=== PATIENT | female | born 1960 | race Caucasian/White ===

== ENCOUNTER 2023-11-30 07:11 | Inpatient (IN) | payer OTHER, SELFPAY ==
[2023-11-30] VITALS (10 sets, daily range): BP systolic 103–146; BP diastolic 57–85; BMI 42.0
--- NOTE | 2023-11-30 01:38 | ED.GENMED ---
History of Present Illness
<MARIBEL Lipscomb - Last Filed: 11/30/23 05:05>
General
Chief Complaint: Abdominal Pain
Source: patient and spouse
Exam Limitations: none
Time Seen by Provider: 11/30/23 01:28
Travel History
Have you had any contact with someone who has COVID-19?: No
Do you have any symptoms of coronavirus? Fever > 100 degrees, chills, cough, shortness of breath, sore throat, loss of taste or smell, muscle aches, or headache?: No
History of Present Illness
History of Present Illness:
62 year old female with hx of IDDM, HTN, hypothyroidism, ileus x2 over 10 years ago, s/p bowel resection and appendectomy over 10 years ago who presents with sudden onset of nausea and vomiting that began at 1700 Saturday. Pt is here with . Pt
vomited 15 times today. She took a dose of Emetrol with no relief. Pt ate salsa about 2 hours prior to onset of vomiting. Pt unable to tell if she had blood in the vomit. reports pt has a hx of intractable vomiting, last episode was 11 years
ago. She also reports sharp abdominal pain that spans across the mid-abdomen. Pain waxes and wanes, currently pain is 4/10. She also complains of lower back pain. She has not taken anything for pain. She has had two BM since onset of pain that were
normal. She is unable to tolerate PO and feels overall weak. States she feels hypoglycemic and reports dizziness and head ache. Denies fevers/chills, heart burn, chest pain, SOB, diarrhea, constipation, dysuria, hematuria, bloody or dark/tarry
stool. Denies recent illness or recent travel. Denies sick contacts.
Past History
<MARIBEL Lipscomb - Last Filed: 11/30/23 05:05>
Past History
ED Past Medical History: IDDM and Hypothyroidism
ED Past Surgical History: Appendectomy, Bowel resection and Tonsilectomy
Social History
Tobacco: Non-smoker
Review of Systems
<MARIBEL Lipscomb - Last Filed: 11/30/23 05:05>
Review of Systems
Allergies reviewed?: Yes
All Other Systems: ROS reviewed and negative except as documented in HPI and ROS
Constitutional: Reports fatigue
EENT: Reports no symptoms
Respiratory: Reports no symptoms
Cardiac: Reports no symptoms
ABD/GI: Reports abdominal pain, nausea and vomiting
: Reports no symptoms
Musculoskeletal: Reports no symptoms
Skin: Reports no symptoms
Neurological: Reports dizzy and headache
Endocrine: Reports no symptoms
Hematologic/Lymphatic: Reports no symptoms
Psychiatric: Reports no symptoms
Phy Exam
<MARIBEL Lipscomb - Last Filed: 11/30/23 05:05>
General Physical Exam
General Presentation: moderate distress and other (weak appearing, eyes closed)
General age: appears stated age
General Skin: warm, dry and pale
General Habitus: obese
General Mental: alert
General Hydration: dry mucous membranes
Cardiovascular Exam
Cardiovascular Exam: regular rate/rhythm, no edema, no gallop and no murmur
Pulmonary Exam
Pulmonary Exam: lungs clear, no respiratory distress, no rales, no crackles, no rhonchi, no wheezing and no cough
Gastrointestinal Exam
Gastrointestinal Exam: normal bowel sounds, soft and other (obese abdomen, midabdominal tenderness across the abdomen)
Neurological Exam
Neurological Exam: alert and oriented x3
Skin Exam
Skin Exam: warm/dry and pallor
Psychiatric Exam
Psychiatric Exam: normal mood/affect
Course
<MARIBEL Lipscomb - Last Filed: 11/30/23 05:05>
Orders/Labs/Results
Orders:
Orders
11/30/23 01:57
Cardiac Monitoring- Treatment ONCE
Urinalysis Reflex To Culture Urgent
0.9% Sodium Chloride 1000 ml [Nss] 1,000 ml IV BOLUS
Morphine Sulfate 4 mg IV NOW STA
Ondansetron Injectable [Zofran] 4 mg IV NOW STA
11/30/23 01:58
CT Abd/Pel (IV only)-DH only Urgent
Comment:
Reason For Exam: hx bowel resection, now n/v/pain
11/30/23 02:05
Complete Blood Count/No Diff Urgent
11/30/23 03:11
Basic Metabolic Panel Urgent
Comment: NO K
Abnormal Lab Results
11/30/23 11/30/23
02:05 03:11
WBC 19.1 H 10^3/uL
(4.8-10.8)
BUN 27 H mg/dl
(7-17)
Glucose 301 H mg/dl
(70-99)
11/30/23 02:05
11/30/23 03:11
Vital Signs
Initial and Last Documented VS:
Initial Vital Signs
Temp Pulse Resp BP Pulse Ox
97.9 F 107 20 146/85 100
11/30/23 01:13 11/30/23 01:13 11/30/23 01:13 11/30/23 01:13 11/30/23 01:13
Last Documented Vital Signs
Temp Pulse Resp BP Pulse Ox
97.9 F 110 15 117/73 97
11/30/23 01:13 11/30/23 04:37 11/30/23 04:37 11/30/23 03:00 11/30/23 04:37
<Jaleesa Cates MD - Last Filed: 11/30/23 05:05>
Orders/Labs/Results
Orders:
Orders
11/30/23 01:57
Cardiac Monitoring- Treatment ONCE
Urinalysis Reflex To Culture Urgent
0.9% Sodium Chloride 1000 ml [Nss] 1,000 ml IV BOLUS
Morphine Sulfate 4 mg IV NOW STA
Ondansetron Injectable [Zofran] 4 mg IV NOW STA
11/30/23 01:58
CT Abd/Pel (IV only)-DH only Urgent
Comment:
Reason For Exam: hx bowel resection, now n/v/pain
11/30/23 02:05
Complete Blood Count/No Diff Urgent
11/30/23 03:11
Basic Metabolic Panel Urgent
Comment: NO K
Abnormal Lab Results
11/30/23 11/30/23
02:05 03:11
WBC 19.1 H 10^3/uL
(4.8-10.8)
BUN 27 H mg/dl
(7-17)
Glucose 301 H mg/dl
(70-99)
11/30/23 02:05
11/30/23 03:11
Vital Signs
Initial and Last Documented VS:
Initial Vital Signs
Temp Pulse Resp BP Pulse Ox
97.9 F 107 20 146/85 100
11/30/23 01:13 11/30/23 01:13 11/30/23 01:13 11/30/23 01:13 11/30/23 01:13
Last Documented Vital Signs
Temp Pulse Resp BP Pulse Ox
97.9 F 110 15 117/73 97
11/30/23 01:13 11/30/23 04:37 11/30/23 04:37 11/30/23 03:00 11/30/23 04:37
<MARIBEL Lipscomb - Last Filed: 11/30/23 05:05>
MDM/Problems Addressed
Differential Diagnosis Includes:
ileus, SBO, bowel perforation, colitis
MDM/Problems Addressed:
62 year old female who presents with midabdominal pain with associated nausea and vomiting.
Chronic conditions affecting care: DM, HTN and Previous abdomnial surgery (bowel resection, appendectomy)
<MARIBEL Lipscomb - Last Filed: 11/30/23 05:05>
*Critical Care Note
Total Time (30-74mins, 75-104mins- exclusive of procedures): Not Applicable
<MARIBEL Lipscomb - Last Filed: 11/30/23 05:05>
Update Note
Update Note:
11/30/23 0226: Pt reevaluated. Nausea and abdominal pain improved after medications. States she feels tired.
ED Attending Note
<MARIBEL Lipscomb - Last Filed: 11/30/23 05:05>
-
Portions of this chart may have been created with voice recognition software.� Occasional wrong word or��sound alike� substitutions may have occurred due to the inherent limitations of voice recognition software.
<Jaleesa Cates MD - Last Filed: 11/30/23 05:05>
ED Attending Note
Patient seen and examined by attending physician: Yes
I performed the substantive portion of visit, reviewed & personally made and approve the management plan that is documented in note by myself or GIANCARLO.: Yes
ED Attending Note:
62-year-old female says she was napping around 4 PM and awoke with mid abdominal discomfort that comes and goes in waves and continues associated with nausea and intractable nonbloody vomiting. This feels like when she had an abdominal ileus in the
past. She has a prior history of prior bowel resection. She thinks she might of passed a small amount of stool. She denies fever, chills, chest pain, shortness of breath, hematemesis, coffee-ground emesis, lower abdominal pain, or other
complaints. On exam, patient appears uncomfortable. Abdomen soft and nontender, no rebound or guarding, hypoactive bowel sounds noted. Heart regular rate and rhythm, lungs CTA, mucous membranes slightly dry, oropharynx clear, no clubbing cyanosis
or edema, neuro intact, psych normal. Patient presents to the Emergency Department with __abdominal pain and vomiting
Number and Complexity of Problems Addressed at the Encounter
� Chronic conditions affecting care:
� Acute Exacerbation and/or Progression of Chronic Illness:
� Differential Diagnosis includes: But not limited to ileus, gastroenteritis, bowel obstruction, etc. etc.
Amount and/or Complexity of Data to be Reviewed and Analyzed
� I performed an independent evaluation of and my interpretation is:
EKG:
CT: Vision report multiple dilated loops of small bowel to the level of the anastomosis within the upper pelvis compatible with obstruction no perforation or fluid collection no diverticulitis distal small bowel is decompressed
no cholecystitis
Xrays:
Laboratory Studies: White blood cell count elevation noted likely related to SBO, mild dehydration
Other:
� Review of other/old records reveals:
� Clinical information was obtained by an independent historian: who is bedside
� Prescriptions/Medications Considered but not given:
� Further testing considered but not performed:
Risk of Complications and/or Morbidity or Mortality of Patient Management
� Social determinants of health affecting care:
� Discussion with other providers (PCP, Hospitalists, Consultants, etc):
� Escalation of care including admission/observation vs risk of discharge considered: CT noted. Patient is no longer vomiting. She will need IV fluids, got rest, admission. [place] text sent to Dr. Monreal.
Discharge Plan
Departure
Patient Disposition: Admit
Date of Disposition: 11/30/23
Time of Disposition: 05:05
Admit to doctor: david
Presentation/result/management discussed w/ accepting MD/DO: Hospitalist
Condition: Good
Discharge Problem:
SBO (small bowel obstruction)
Prescriptions:
No Action
multivitamin Tablet
1 tab PO DAILY
pravastatin 40 mg Tablet
40 mg PO QPM
aspirin 81 mg Tablet,Delayed Release (Dr/Ec)
81 mg PO DAILY
levothyroxine 100 mcg Tablet
100 mcg PO DAILY
Humulin R Regular U-100 Insuln 100 unit/mL Solution
20 unit SC AC
lisinopril 5 mg Tablet
5 mg PO DAILY
insulin NPH isoph U-100 human 100 unit/mL (3 mL) Insulin Pen
40 unit SC DAILY
insulin NPH isoph U-100 human 100 unit/mL (3 mL) Insulin Pen
65 unit SC QPM
cefazolin 10 gram Recon Soln
2 g IV Q8H 42 Days Qty: 126 0RF
oxycodone-acetaminophen 5-325 mg Tablet
1 tab PO Q4HPRN PRN (Reason: POST OP PAIN) Qty: 14 0RF
polyethylene glycol 3350 [Miralax] 17 gram/dose powder
4 g PO DAILY 10 Days Qty: 40 0RF
Referrals:
Aggie Durbin MD [Family Provider] -
Interventions
Interventions:
*Risk Screen - Suicide Last Done: 11/30/23 01:13
*General Assessment Last Done: 11/30/23 01:13
*Neglect/Abuse Screening Last Done: 11/30/23 01:13
ED- Fall Risk Assessment Last Done: 11/30/23 01:13
*ED COVID-19 Vaccine History Last Done: 11/30/23 01:13
OH-Gslgas-Fvmlywboam Assessment Last Done: 11/30/23 01:50
Discharge Date and Time
Print Language: VENEZUELAN
[2023-11-30] MEDS: NSS 1000 IV ×3 (02:13→11:22)
[2023-11-30] MEDS: ZOFRAN 4 MG IV ×2 (02:14→07:38)
[2023-11-30] MEDS: MORPHINE SULFATE 4 MG IV (02:14)
[2023-11-30 02:25] LABS: Hematocrit 40.9 % (37.0-47.0); Hemoglobin 14.5 g/dL (12.0-16.0); Mean Corp Hgb Conc. 35.5 g/dL (33.0-37.0); Mean Corpuscular Hgb 29.8 pg (27.0-31.0); Mean Platelet Volume 9.5 fL (7.4-10.4); Platelet Count 305 10^3/uL (130-400); Red Blood Cell Count 4.87 10^6/uL (4.20-5.40); Red Cell Dist. Width 13.1 % (11.5-14.5); White Blood Cell Count 19.1 10^3/uL (4.8-10.8)
[2023-11-30 03:36] LABS: Blood Urea Nitrogen 27 mg/dl (7-17); Calcium 9.9 mg/dl (8.4-10.2); Carbon Dioxide 22 mmol/L (22-30); Chloride 102 mmol/L (98-107); Glucose 301 mg/dl (70-99); Sodium 135 mmol/L (135-145); eGFR > 60.00
--- NOTE | 2023-11-30 06:47 | HPS.HSE ---
Family Physician
-
Family Physician: Aggie Durbin
Chief Complaint
-
Abd pain, N/V
History of Present Illness
Patient is a 62y F with PMH significant for DM-II and obesity who presents to ED complaining of abdominal pain and N/V. Patient states that she was feeling well until around 5 PM last evening when she developed pain across the lower abdomen
followed by N/V. Patient notes that she had > 12 episodes of non-bloody, bilious emesis. Her symptoms persisted through the night and patient presented to the ED for further evaluation.
Patient denies any fevers / chills, urinary complaints, etc.
Patient reports prior history of similar symptoms and notes she has been treated for ileus on 2 previous occasions.
She has prior history of complicated appendicitis with abscess, prolonged drain placement and eventual small bowel resection / appendectomy.
Medical History
Past Medical History
Past Medical History: Reports Other
Additional Past Medical History:
DM-II
Charcot Foot (Right)
Hypothyroidism
Obesity
Past Surgical History: Reports Other
Additional Past Surgical History:
Right Foot Reconstructive Surgery / Digital Amputation
IR Abdominal Drain Placement
Partial Small Bowel Resection
Appendectomy
Social History
Tobacco: Former Smoker (Quit smoking about 25 years ago. Approx 20 pack years total.)
Alcohol: Occasional
Personal:
Living: With Family
Family History
Family History: Other (Mother: CVA Father: DM)
Allergies / Home Medications
Allergies reflects when Allergies were last updated in [employer].
Home Medications with original date entered in [employer]
Allergy/Medication List:
Allergies
Allergy/AdvReac Type Severity Reaction Status Date / Time
barium iodide Allergy Nausea / Verified 11/30/23 01:13
Vomiting
Home Medications
aspirin 81 mg tablet,delayed release 81 mg PO DAILY Blood Clot Prevention/Tx 12/12/22
insulin NPH isoph U-100 human 100 unit/mL (3 mL) subcutaneous pen 40 unit SC DAILY Diabetes 12/12/22
insulin NPH isoph U-100 human 100 unit/mL (3 mL) subcutaneous pen 65 unit SC QPM Diabetes 12/12/22
insulin regular human 100 unit/mL injection solution (Humulin R Regular U-100 Insulin) 20 unit SC AC Diabetes 12/12/22
levothyroxine 100 mcg tablet 100 mcg PO DAILY Thyroid 12/12/22
lisinopril 5 mg tablet 5 mg PO DAILY Blood Pressure 12/12/22
multivitamin 1 tab PO DAILY Supplement 12/12/22
pravastatin 40 mg tablet 40 mg PO QPM High Cholesterol 12/12/22
Review of Systems
-
History Source: Patient
A 12 point ROS was completed and negative except as noted: Yes
Constitutional: Reports Fatigue; Denies Fever or Chills
EENT: Denies Sore Throat
Respiratory: Denies Cough or Trouble Breathing
Cardiac: Denies Chest Pain or Palpitations
Abdomen/GI: Reports Abdominal Pain, Nausea and Vomiting; Denies Diarrhea, Constipated or Bloody Stools
Musculoskeletal: Denies Joint Pain or Edema
Neurological: Denies Dizzy or Headache
Physical Exam
Vital Signs
Vital Signs
Temp Pulse Resp BP Pulse Ox
97.9 F 110 15 117/73 97
11/30/23 01:13 11/30/23 04:37 11/30/23 04:37 11/30/23 03:00 11/30/23 04:37
Physical Exam
General: Other (62y F in mild distress due to pain / nausea.)
HEENT: Moist mucous membranes, PERRLA and Other (Thick neck.)
Respiratory: Clear; No Wheezes, Rales or Rhonchi
Cardiac: S1/S2 and Regular Rhythm; No Murmur
GI: Soft, Non Distended and Other (Bowel sounds seem diminished. Pos tenderness along lower abdomen without rebound.)
Musculoskeletal: No Clubbing, No Cyanosis and No Edema
Neuro: AO x 3
Laboratory Results
-
11/30/23 02:05
11/30/23 03:11
Laboratory Results
Total Bilirubin Cancelled 11/30/23 03:11
AST Cancelled 11/30/23 03:11
ALT Cancelled 11/30/23 03:11
Alkaline Phosphatase Cancelled 11/30/23 03:11
Lipase Cancelled 11/30/23 03:11
Impression/Plan
-
A/P: Patient is a 62y F with PMH significant for DM-II and obesity who presents to ED complaining of abdominal pain and N/V that started this evening.
SBO
- Admit for further evaluation and treatment.
- CT done in the ED shows small bowel dilation to the level of the prior anastomosis.
- NPO, IVFs, pain control, antiemetics.
- Pace NG for decompression if any further emesis or worsening pain.
- Surgery evaluation for additional recommendations.
- Follow for clinical improvement.
DM-II with Peripheral Neuropathy
- Stable. Continue basal : bolus insulin regimen.
- Decrease NPH doses by about 1/2 to begin with while NPO.
- SSI coverage as needed.
- Update A1C.
- Adjust insulin regimen as needed to avoid hypoglycemia.
Hypothyroidism
- Stable. Continue T 4 supplementation.
Obesity due to excess calories
- Affects all aspects of care.
- Encourage healthy diet and increased exercise with goal of weight loss.
DVT Prophylaxis: Lovenox
Code Status: Full
[2023-11-30] MEDS: DILAUDID 0.5 MG IV (07:42)
--- NOTE | 2023-11-30 10:17 | PTCARENOTE ---
0945: Patient arrived to 2S. Full head to toe assessment completed. IVF running per order. Patient wearing 2L NC with SpO2 greater than 92%. at bedside. Call valencia within reach and bed in lowest position.
[2023-11-30] MEDS: NOVOLOG FLEXPEN-MODERATE RESISTANCE SC (11:19)
--- NOTE | 2023-11-30 11:19 | CON.GS ---
Medical History
-
Chief Complaint: abdominal pain
History of Present Illness:
This is a 62 yo female with a h/o DM, HTN, appendectomy about 20 years ago for perforated appendicitis with subsequent development of fistula and small bowel resection for management with 2 hospitalizations since that time for 'ileus' with the most
recent being about 10 years ago presenting with abdominal pain since around 5pm last night. She notes a late lunch of caprese salad made with roasted peppers and as well as chips and salsa after which time she took a nap and was awakened with
abdominal pain to her lower abdomen with nausea and vomiting. Last BM was yesterday x2 prior to onset of pain. She denies active nausea after receiving zofran. She has pain to the mid lower abdomen with light palpation, but is otherwise comfortable.
She denies hematochezia, constipation, diarrhea, fevers or chills.
Past Medical History
Past Medical History: HTN, Hypercholesterolemia, Hypothyroidism and IDDM
Past Surgical History: Appendectomy, Bowel Resection (sbr for fistula early ), Tonsilectomy and Other (I&D of right foot abscess)
Social History
Tobacco: Former Smoker
Alcohol: Occasional
Personal:
Living: With Family
Family History
Family History: Reviewed & Not Pertinent
Allergies / Home Medications
Allergy/AdvReac Type Severity Reaction Status Date / Time
barium iodide Allergy Nausea / Verified 11/30/23 07:31
Vomiting
�Medication �Instructions �Recorded �Confirmed �Type
aspirin 81 mg tablet,delayed 81 mg PO DAILY Blood Clot 12/12/22 11/30/23 History
release Prevention/Tx
insulin NPH isoph U-100 human 100 40 unit SC DAILY Diabetes 12/12/22 11/30/23 History
unit/mL (3 mL) subcutaneous pen
insulin NPH isoph U-100 human 100 65 unit SC QPM Diabetes 12/12/22 11/30/23 History
unit/mL (3 mL) subcutaneous pen
insulin regular human 100 unit/mL 20 unit SC AC Diabetes 12/12/22 11/30/23 History
injection solution (Humulin R
Regular U-100 Insulin)
levothyroxine 100 mcg tablet 100 mcg PO DAILY Thyroid 12/12/22 11/30/23 History
lisinopril 5 mg tablet 5 mg PO DAILY Blood Pressure 12/12/22 11/30/23 History
multivitamin 1 tab PO DAILY Supplement 12/12/22 11/30/23 History
pravastatin 40 mg tablet 40 mg PO QPM High Cholesterol 12/12/22 11/30/23 History
Review of Systems
-
History Source: Patient and Family
All other systems: Negative unless noted
A 10 point review of systems was completed, and was negative except as per HPI.
Physical Exam
Vital Signs
Temp Pulse Resp BP Pulse Ox
98.0 F 101 18 111/57 98
11/30/23 07:39 11/30/23 09:30 11/30/23 07:14 11/30/23 09:00 11/30/23 09:30
11/29/23 11/30/23 12/01/23
06:59 06:59 06:59
Actual Weight 125.191 kg
Body Mass Index (BMI) 42.0
Lab Results
11/30/23 02:05
11/30/23 03:11
WBC 19.1 10^3/uL (4.8-10.8) H 11/30/23 02:05
Hgb 14.5 g/dL (12.0-16.0) 11/30/23 02:05
Hct 40.9 % (37.0-47.0) 11/30/23 02:05
Plt Count 305 10^3/uL (130-400) 11/30/23 02:05
Physical Exam
General: Well Developed and Well Nourished
HEENT: Moist Mucous Membranes
Respiratory: Non Labored Respirations
GI: Soft and Tender (lower mid abdomen/suprapubicly)
Skin: Warm and Dry
Neuro: Awake, Alert and AO x 3
Psych: Calm
Assessment / Plan
-
62 yo female with h/o DM, HTN, appendectomy about 20 years ago for perforated appendicitis with subsequent development of fistula and small bowel resection for management with 2 hospitalizations since that time for 'ileus' with the most recent being
about 10 years ago presenting with abdominal pain since around 5pm last night. Leukocytosis present. CT imaging reviewed with evidence of pSBO near the prior SB anastomosis site, abscence of PO contrast does limit study. Pain/nausea improving
overall. Mild tachycardia, otherwise AFVSS.
No plans for emergent surgery at this time. Will follow with bowel rest/hydration/analgesics/supportive care at this time
--Keep NPO, may need NGT if develops further vomiting
--Analgesics/antiemetics prn
--Tentative SBFT study with contrast Saturday to further evaluate pending patient course
--IVF and medical management as per primary team
[2023-11-30] MEDS: SYNTHROID 100 MCG PO (11:22)
[2023-11-30] MEDS: NSS (PRESERVATIVE FREE) 10 ML IV (11:23)
[2023-11-30] MEDS: PROTONIX IV 40 MG IV (11:24)
[2023-11-30 12:00] LABS: Urine Albumin Negative (Neg - Trace); Urine Bilirubin Negative (Negative); Urine Character Clear (Clear); Urine Color Yellow; Urine Glucose 3+ (Negative); Urine Ketone 1+ (Negative); Urine Leukocyte 1+ (Negative); Urine Nitrite Negative (Negative); Urine Occult Blood Negative (Negative); Urine Specific Gravity 1.015 (<1.030); Urine Urobilinogen Negative (Neg - 1+)
[2023-11-30 12:15] LABS: Glucose - Point of Care 248 mg/dl (70-99)
[2023-11-30] MEDS: HUMULIN N KWIKPEN 20 UNITS SC (12:16)
[2023-11-30] MEDS: NOVOLOG FLEXPEN-MODERATE RESISTANCE 3 UNITS SC ×2 (12:16→17:17)
[2023-11-30 12:53] LABS: Urine Red Blood Cell None Seen /HPF (0-2); Urine Squamous Cell 21-25 /LPF (Few)
[2023-11-30 12:54] LABS: Urine Bacteria Few (Negative)
[2023-11-30 17:04] LABS: Glucose - Point of Care 204 mg/dl (70-99)
[2023-11-30] MEDS: HUMULIN N KWIKPEN 30 UNITS SC (17:18)
[2023-11-30] MEDS: LOVENOX 40 MG SC (17:19)
[2023-12-01 00:07] LABS: Glucose - Point of Care 79 mg/dl (70-99)
[2023-12-01] MEDS: NSS 1000 IV ×2 (01:13→07:39)
[2023-12-01 05:45] LABS: Glucose - Point of Care 70 mg/dl (70-99)
--- NOTE | 2023-12-01 06:31 | PTCARENOTE ---
Pt blood glucose 70 at this time, provided 4oz of apple juice since pt is NPO until seen by MD. Pt is AAOx3 resting in bed and aware of blood glucose level. Pt knows s/s of hypoglycemia and will notify Nsg staff if any changes.
[2023-12-01 06:38] LABS: Hematocrit 32.6 % (37.0-47.0); Mean Corp Hgb Conc. 33.4 g/dL (33.0-37.0); Mean Corpuscular Volume 89.8 fL (81.0-99.0); Platelet Count 244 10^3/uL (130-400); Red Blood Cell Count 3.63 10^6/uL (4.20-5.40); Red Cell Dist. Width 13.6 % (11.5-14.5); White Blood Cell Count 8.5 10^3/uL (4.8-10.8)
[2023-12-01 06:45] LABS: Hemoglobin 10.9 g/dL (12.0-16.0)
[2023-12-01 06:50] LABS: Blood Urea Nitrogen 23 mg/dl (7-17); Calcium 8.5 mg/dl (8.4-10.2); Carbon Dioxide 24 mmol/L (22-30); Chloride 107 mmol/L (98-107); Estimated Creatinine Clearance 88 ml/min; Glucose 58 mg/dl (70-99); Potassium 4.4 mmol/L (3.5-5.1); Sodium 139 mmol/L (135-145); eGFR > 60.00
[2023-12-01] MEDS: NOVOLOG FLEXPEN-MODERATE RESISTANCE SC ×2 (07:20→12:01)
[2023-12-01] MEDS: HUMULIN N KWIKPEN SC (07:21)
[2023-12-01] MEDS: NSS (PRESERVATIVE FREE) 10 ML IV (07:40)
[2023-12-01] MEDS: SYNTHROID 100 MCG PO (07:40)
[2023-12-01] MEDS: DEXTROSE 50% SYRINGE 12.5 GRAMS IV (07:40)
[2023-12-01] MEDS: PROTONIX IV 40 MG IV (07:40)
[2023-12-01 07:49] VITALS: BP 136/58
[2023-12-01 08:11] LABS: Glucose - Point of Care 137 mg/dl (70-99)
[2023-12-01 08:25] VITALS: BP 148/71; PULSE 101
--- NOTE | 2023-12-01 09:41 | W.PN.GS2 ---
Today's Communication / Plan
-
-- NPO, IVF, await ROBF
-- Transition to mIVF with some dextrose
-- Would recommend transition to SSI not home given NPO status
-- OOB/ambulate
Assessment / Plan
-
Patient is a 62 yo F p/w SBO secondary to adhesions and anastomosis, possible component of dietary indiscretion
Clinically improved, awaiting ROBF. Discussed potential diagnostic and therapeutic benefit of UGI, patient reports prior issues with tolerating the study and would like to hold at this time.
-- NPO, IVF, await ROBF
-- Transition to mIVF with some dextrose
-- Would recommend transition to SSI not home given NPO status
-- OOB/ambulate
Subjective Data
-
Date of Service: December 01, 2023
Feels improved. Abdominal pain resolved. No nausea or vomiting. No flatus or BM.
Objective Data
-
Intake and Output
11/30/23 12/01/23 12/02/23
06:59 06:59 06:59
Intake Total 1200 / 1200 1680 / 1680
Output Total 700 / 700
Balance 500 / 500 1680 / 1680
Intake:
Oral fluids 480 / 480
IV fluids (Total) 1200 / 1200 1200 / 1200
Output:
Urine, Voided 700 / 700
Other:
Number of approximated MODERATE 1
amounts of urine
Vital Signs
Temp Pulse Resp BP Pulse Ox
97.9 F 99 16 136/58 96
12/01/23 07:49 12/01/23 07:49 12/01/23 07:49 12/01/23 07:49 12/01/23 07:49
Lab Results
12/01/23 05:24
12/01/23 05:24
Calcium 8.5 mg/dl (8.4-10.2) 12/01/23 05:24
Total Bilirubin Cancelled 11/30/23 03:11
AST Cancelled 11/30/23 03:11
ALT Cancelled 11/30/23 03:11
Alkaline Phosphatase Cancelled 11/30/23 03:11
Total Protein Cancelled 11/30/23 03:11
Albumin Cancelled 11/30/23 03:11
Physical Exam
-
Gen: NAD
Abd: soft, ND, obese, no worse distension, non-peritoneal
[2023-12-01 10:08] LABS: Glucose - Point of Care 125 mg/dl (70-99)
[2023-12-01 10:17] LABS: Glycohemoglobin (HgbA1c) 7.2 % (4.0-5.6)
[2023-12-01] MEDS: D5/0.45%NSS with KCL 20 MEQ 1000 IV ×2 (10:34→20:39)
[2023-12-01 11:48] LABS: Glucose - Point of Care 137 mg/dl (70-99)
--- NOTE | 2023-12-01 15:23 | CM ---
Initial assessment completed with pt at bedside.
Pt is a 62yr old female admitted with Small Bowel Obstruction.
At baseline, pt lives with her spouse in a 1 story home with 3 steps to enter.
Pt is indep at baseline; driving.
Pt does have a cane for bad weather and received a Rw and commode during a prior stay
Pt has used [facility] in the past but does not anticipate needing at dc.
PCP; Aggie Durbin
Pharm; [address]
PLAN; DC home with no anticipated needs.
--- NOTE | 2023-12-01 15:32 | W.PN.HOSP.TC ---
Today's Communication/Plan
-
see plan above
Assessment / Plan
Assessment / Plan
A/P: Patient is a 62y F with PMH significant for DM-II and obesity who presents to ED complaining of abdominal pain and N/V that started this evening.
SBO
- CW NPO, IV fluids
- Surgery following
- CT done in the ED shows small bowel dilation to the level of the prior anastomosis.
- Follow for clinical improvement.
DM-II with Peripheral Neuropathy
- Stable. Continue basal : bolus insulin regimen. Patient normally takes 105 units of Humulin N and and 20 units of Humalog with a meal. Cant just do sliding scale as he will be difficult to manage hyperglycemia. Will cover with a decreased
dose of Humulin and and continue with sliding scale.
- SSI coverage as needed.
- Update A1C.
- Adjust insulin regimen as needed to avoid hypoglycemia.
Hypothyroidism
- Stable. Continue T 4 supplementation.
Obesity due to excess calories
- Affects all aspects of care.
- Encourage healthy diet and increased exercise with goal of weight loss.
DVT Prophylaxis: Lovenox
Code Status: Full
Anticipated Discharge: > 48 hours
Subjective/Interval History
-
Date of Service: December 01, 2023
Still no BM or passing gas. No nausea vomiting. Denies much of abdominal pain.
Objective Data
-
Labs:
Laboratory Results
12/01/23
05:24
WBC 8.5
Hgb 10.9 L D
Hct 32.6 L
Plt Count 244
Sodium 139
Potassium 4.4
Chloride 107
Carbon Dioxide 24
BUN 23 H
Creatinine 0.9
Glucose 58 L
Calcium 8.5
Vital Signs:
Vital Signs
Temp Pulse Resp BP Pulse Ox
97.9 F 99 16 136/58 96
12/01/23 07:49 12/01/23 07:49 12/01/23 07:49 12/01/23 07:49 12/01/23 08:00
I&O
11/30/23 12/01/23 12/02/23
06:59 06:59 06:59
Intake Total 1200 / 1200 1680 / 1680
Output Total 700 / 700
Balance 500 / 500 1680 / 1680
Review of Systems
-
Respiratory: Denies Trouble Breathing
Cardiac: Denies Chest Pain
Neuro: Denies Dizzy
Physical Exam
-
General: No Apparent Distress
HEENT: Moist Mucous Membranes
Respiratory: Clear to Auscultation (anteriroly)
GI: Soft and Nontender; Negative Nondistended (obese) or Normal Bowel Sounds (hypoactive)
Neuro: AO x 3
Data Reviewed
-
Labs: Labs Reviewed by me
[2023-12-01 15:51] VITALS: BP 160/78
[2023-12-01] MEDS: LOVENOX 40 MG SC (17:25)
[2023-12-01] MEDS: HUMULIN N KWIKPEN 20 UNITS SC (17:25)
[2023-12-01 17:26] LABS: Glucose - Point of Care 157 mg/dl (70-99)
[2023-12-01] MEDS: NOVOLOG FLEXPEN-MODERATE RESISTANCE 1 UNITS SC (17:28)
[2023-12-01 23:00] VITALS: BP 140/68
[2023-12-02 00:09] LABS: Glucose - Point of Care 130 mg/dl (70-99)
[2023-12-02] MEDS: NOVOLOG FLEXPEN-MODERATE RESISTANCE SC ×2 (00:28→05:56)
[2023-12-02 03:09] LABS: Glucose - Point of Care 138 mg/dl (70-99)
[2023-12-02 05:47] LABS: Glucose - Point of Care 147 mg/dl (70-99)
[2023-12-02] MEDS: D5/0.45%NSS with KCL 20 MEQ 1000 IV (05:56)
[2023-12-02 06:15] LABS: Hemoglobin 10.3 g/dL (12.0-16.0); Mean Corp Hgb Conc. 33.2 g/dL (33.0-37.0); Mean Corpuscular Hgb 29.9 pg (27.0-31.0); Mean Corpuscular Volume 89.9 fL (81.0-99.0); Mean Platelet Volume 10.1 fL (7.4-10.4); Platelet Count 234 10^3/uL (130-400); Red Blood Cell Count 3.45 10^6/uL (4.20-5.40); Red Cell Dist. Width 13.3 % (11.5-14.5); White Blood Cell Count 7.9 10^3/uL (4.8-10.8)
[2023-12-02 06:46] LABS: Blood Urea Nitrogen 14 mg/dl (7-17); Calcium 8.4 mg/dl (8.4-10.2); Carbon Dioxide 24 mmol/L (22-30); Chloride 106 mmol/L (98-107); Estimated Creatinine Clearance 99 ml/min; Glucose 125 mg/dl (70-99); Potassium 4.5 mmol/L (3.5-5.1); Sodium 137 mmol/L (135-145); eGFR > 60.00
[2023-12-02 07:05] VITALS: BP 136/63
--- NOTE | 2023-12-02 08:17 | W.PN.GS2 ---
Addendum entered and electronically signed by James Pitts MD 12/02/23 08:30:
Patient seen and examined. Agree with assessment plan as documented below.
Feels improved. Denies abdominal pain. No nausea or vomiting. Passing flatus, no BM. Afebrile.
Gen: NAD
Abd: soft, obese, NT, MD, non-peritoneal
Patient is a 62 yo F p/w SBO secondary to adhesions and anastomosis, possible component of dietary indiscretion
Clinically improved and passing flatus, following for ROBF. Discussed potential diagnostic and therapeutic benefit of UGI, patient reports prior issues with tolerating the study and would like to hold at this time.
AFVSS
Leukocytosis present on admission now resolved
-- Trial of clears
-- On D5/0.45% with KCL, will continue until tolerating PO
-- OOB/ambulate
Original Note:
Today's Communication / Plan
-
Clears
Assessment / Plan
-
Patient is a 62 yo F p/w SBO secondary to adhesions and anastomosis, possible component of dietary indiscretion
Clinically improved and passing flatus, following for ROBF. Discussed potential diagnostic and therapeutic benefit of UGI, patient reports prior issues with tolerating the study and would like to hold at this time.
AFVSS
Leukocytosis present on admission now resolved
-- Trial of clears
-- On D5/0.45% with KCL, will continue until tolerating PO
-- OOB/ambulate
Subjective Data
-
Date of Service: December 02, 2023
Patient seen and examined at bedside with Dr. Pitts. Notes she continues to feel better. Passing flatus. Denies n/v.
Objective Data
-
Intake and Output
12/01/23 12/02/23 12/03/23
06:59 06:59 06:59
Intake Total 1200 / 1200 4080 / 4080
Output Total 700 / 700
Balance 500 / 500 4080 / 4080
Intake:
Oral fluids 480 / 480
IV fluids (Total) 1200 / 1200 3600 / 3600
Output:
Urine, Voided 700 / 700
Other:
Number of approximated MODERATE 2
amounts of urine
Number of approximated LARGE 2
amounts of urine
Vital Signs
Temp Pulse Resp BP Pulse Ox
99 F 92 16 136/63 95
12/02/23 07:05 12/02/23 07:05 12/02/23 07:05 12/02/23 07:05 12/02/23 07:05
Lab Results
12/02/23 04:35
12/02/23 04:35
Calcium 8.4 mg/dl (8.4-10.2) 12/02/23 04:35
Total Bilirubin Cancelled 11/30/23 03:11
AST Cancelled 11/30/23 03:11
ALT Cancelled 11/30/23 03:11
Alkaline Phosphatase Cancelled 11/30/23 03:11
Total Protein Cancelled 11/30/23 03:11
Albumin Cancelled 11/30/23 03:11
Physical Exam
-
Gen: NAD
Abd: soft, obese, improving distension, non-peritoneal
[2023-12-02] MEDS: HUMULIN N KWIKPEN 10 UNITS SC (08:49)
[2023-12-02] MEDS: PROTONIX IV 40 MG IV (08:49)
[2023-12-02] MEDS: NSS (PRESERVATIVE FREE) 10 ML IV (08:50)
[2023-12-02] MEDS: SYNTHROID 100 MCG PO (08:50)
--- NOTE | 2023-12-02 12:40 | W.PN.HOSP.TC ---
Today's Communication/Plan
-
ADAT, CLD
Pelvic US
IVF
Assessment / Plan
Assessment / Plan
General: No Apparent Distress
HEENT: Moist Mucous Membranes
Respiratory: Clear to Auscultation
GI: Soft and Nontender; Negative Nondistended (obese) or Normal Bowel Sounds (hypoactive)
Neuro: AO x 3
A/P: Patient is a 62y F with PMH significant for DM-II and obesity who presents to ED complaining of abdominal pain and N/V that started this evening.
SBO
- Adv to CLD, ADAT
- IV fluids
- Surgery following
- CT done in the ED shows small bowel dilation to the level of the prior anastomosis.
- Follow for clinical improvement.
DM-II with Peripheral Neuropathy
- Stable. Continue basal : bolus insulin regimen. Patient normally takes 105 units of Humulin N and and 20 units of Humalog with a meal. Cant just do sliding scale as he will be difficult to manage hyperglycemia. Will cover with a decreased
dose of Humulin and and continue with sliding scale.
- SSI coverage as needed.
- Update A1C.- 7.2
- Adjust insulin regimen as needed to avoid hypoglycemia.
Decreased density of uterus
-f/u pelvic US
Hypothyroidism
- Stable. Continue T 4 supplementation.
Obesity due to excess calories
- Affects all aspects of care.
- Encourage healthy diet and increased exercise with goal of weight loss.
DVT Prophylaxis: Lovenox
Code Status: Full
Anticipated Discharge: Within 24 hours
Subjective/Interval History
-
Date of Service: December 02, 2023
Passing gas, tolerating liquid diet
Objective Data
-
Labs:
Laboratory Results
12/02/23
04:35
WBC 7.9
Hgb 10.3 L
Hct 31.0 L
Plt Count 234
Sodium 137
Potassium 4.5
Chloride 106
Carbon Dioxide 24
BUN 14
Creatinine 0.8
Glucose 125 H
Calcium 8.4
Vital Signs:
Vital Signs
Temp Pulse Resp BP Pulse Ox
99 F 92 16 136/63 95
12/02/23 07:05 12/02/23 07:05 12/02/23 07:05 12/02/23 07:05 12/02/23 07:05
I&O
12/01/23 12/02/23 12/03/23
06:59 06:59 06:59
Intake Total 1200 / 1200 4080 / 4080
Output Total 700 / 700
Balance 500 / 500 4080 / 4080
Review of Systems
-
History Source: Patient
All other systems: Not reviewed unless documented
Data Reviewed
-
CT Scan: Image personally visualized and interpreted and Report Reviewed by me
Ultrasound: Image personally visualized and interpreted and Report Reviewed by me
Labs: Labs Reviewed by me
[2023-12-02 13:05] LABS: Glucose - Point of Care 206 mg/dl (70-99)
--- NOTE | 2023-12-02 14:18 | PN.CDI ---
CDI
- -
CDI:
Physician Documentation Request
Admit Date: 11/30/23 07:11
Dear Doctor John,
Please review the following and provide your response in the progress notes.
Clinical Indicators:
- Patient admit for small bowel obstruction
- 11/29 ER Physician 'sudden onset of nausea and vomiting...vomited 15 times today'
- 11/29 admission: WBC 19.1, HR 100's
Please clarify which most accurately describes the patient:
SIRS due to small bowel obstruction
Clinically insignificant abnormal lab value
Other (please specify)
Use of terms such as suspected, likely, concern for, or probable (associated with a specific diagnosis that is being evaluated, monitored, or treated as if it exists) are acceptable and can be coded in the inpatient setting, when documented at the
time of discharge.
Thank you,
Marty Reese RN
CDI Specialist
Please use your independent medical judgment in providing your response.
[2023-12-02] MEDS: NOVOLOG FLEXPEN-MODERATE RESISTANCE 3 UNITS SC ×2 (14:22→17:48)
[2023-12-02 14:50] VITALS: BP 136/64
--- NOTE | 2023-12-02 16:55 | CM ---
Chart reviewed home when stable, no needs.
Plan; Home no needs.
[2023-12-02 17:42] LABS: Glucose - Point of Care 214 mg/dl (70-99)
[2023-12-02] MEDS: D5/0.45%NSS with KCL 20 MEQ IV (17:45)
[2023-12-02] MEDS: LOVENOX 40 MG SC (17:52)
[2023-12-02] MEDS: HUMULIN N KWIKPEN 20 UNITS SC (17:53)
--- NOTE | 2023-12-02 19:26 | PTCARENOTE ---
Pt to be transferred to [facility] for bed availability. Pt informed of the transfer. Report called to Hallie NOYOLA.
[2023-12-02 20:10] VITALS: BP 133/72
--- NOTE | 2023-12-02 20:34 | PTCARENOTE ---
patient received to room 331, ox3, oriented to room and floor routines. Inst environmental engineer scientist valencia. Call valencia within reach. Reviewed poc, all questions addressed. pt tolerating clear liquids, no N/V. pt states +bm this afternoon.
[2023-12-02 21:41] LABS: Glucose - Point of Care 134 mg/dl (70-99)
[2023-12-02 23:22] VITALS: BP 139/66
[2023-12-03] MEDS: SYNTHROID 100 MCG PO (07:34)
[2023-12-03] MEDS: NSS (PRESERVATIVE FREE) 10 ML IV (07:34)
[2023-12-03] MEDS: PROTONIX IV 40 MG IV (07:34)
[2023-12-03 07:36] VITALS: BP 134/66
[2023-12-03 07:51] LABS: Glucose - Point of Care 126 mg/dl (70-99)
[2023-12-03 07:58] LABS: Hematocrit 31.8 % (37.0-47.0); Hemoglobin 10.8 g/dL (12.0-16.0); Mean Corpuscular Hgb 29.9 pg (27.0-31.0); Mean Corpuscular Volume 88.1 fL (81.0-99.0); Mean Platelet Volume 9.7 fL (7.4-10.4); Platelet Count 225 10^3/uL (130-400); Red Blood Cell Count 3.61 10^6/uL (4.20-5.40); Red Cell Dist. Width 13.2 % (11.5-14.5); White Blood Cell Count 7.5 10^3/uL (4.8-10.8)
[2023-12-03] MEDS: NOVOLOG FLEXPEN-MODERATE RESISTANCE SC (08:03)
[2023-12-03 08:31] LABS: ALT (SGPT) 17 U/L (0-35); AST (SGOT) 27 U/L (14-36); Albumin 3.4 g/dl (3.5-5.0); Alkaline Phosphatase 84 U/L (38-126); Blood Urea Nitrogen 10 mg/dl (7-17); Calcium 9.3 mg/dl (8.4-10.2); Carbon Dioxide 25 mmol/L (22-30); Chloride 104 mmol/L (98-107); Estimated Creatinine Clearance 99 ml/min; Glucose 116 mg/dl (70-99); Potassium 4.4 mmol/L (3.5-5.1); Sodium 137 mmol/L (135-145); Total Bilirubin 0.8 mg/dl (0.2-1.3); eGFR > 60.00
[2023-12-03] MEDS: HUMULIN N KWIKPEN 10 UNITS SC (09:27)
[2023-12-03 11:33] LABS: Glucose - Point of Care 205 mg/dl (70-99)
--- NOTE | 2023-12-03 11:44 | W.PN.HOSP.TC ---
Addendum entered and electronically signed by Jag Lopez MD 12/07/23 16:52:
SIRS due to small bowel obstruction
Addendum entered and electronically signed by Jag Lopez MD 12/04/23 15:36:
[id number]
Original Note:
Today's Communication/Plan
-
advance to LRD
if tolerating, can dc on LRD
F/u PCP, Surgery outpatient
F/u Webmethods Architect outpatient for thickened endometrium
Assessment / Plan
Assessment / Plan
General: No Apparent Distress
HEENT: Moist Mucous Membranes
Respiratory: Clear to Auscultation
GI: Soft and Nontender; Negative Nondistended (obese) or Normal Bowel Sounds (hypoactive)
Neuro: AO x 3
A/P: Patient is a 62y F with PMH significant for DM-II and obesity who presents to ED complaining of abdominal pain and N/V that started this evening.
SBO
- Adv to LRD, if tolerating can DC
- passing flatus, had BM
- Surgery following
- CT done in the ED shows small bowel dilation to the level of the prior anastomosis.
- Follow for clinical improvement.
DM-II with Peripheral Neuropathy
- Stable. Continue basal : bolus insulin regimen. Patient normally takes 105 units of Humulin N and and 20 units of Humalog with a meal. Cant just do sliding scale as he will be difficult to manage hyperglycemia. Will cover with a decreased
dose of Humulin and and continue with sliding scale.
- SSI coverage as needed.
- Update A1C.- 7.2
- Adjust insulin regimen as needed to avoid hypoglycemia.
Decreased density of uterus
-f/u pelvic US
-1. Thickened endometrium for age. Differential includes endometrial hyperplasia, polyp and carcinoma. Further evaluation with dedicated hysterosonogram can be obtained if clinically indicated.
-F/u liturgical music director outpatient
Hypothyroidism
- Stable. Continue T 4 supplementation.
Obesity due to excess calories
- Affects all aspects of care.
- Encourage healthy diet and increased exercise with goal of weight loss.
DVT Prophylaxis: Lovenox
Code Status: Full
More than 30 minutes spent in discharge including
Final examination of the patient
Summarizing hospital stay
Instructions for continuing care to all relevant caregivers
Preparation of discharge records, prescriptions, and referral forms
Total time spent (35 in minutes):
Anticipated Discharge: Today
Subjective/Interval History
-
Date of Service: December 03, 2023
tolerating cld, passing flatus, had bm
Objective Data
-
Labs:
Laboratory Results
12/03/23
07:20
WBC 7.5
Hgb 10.8 L
Hct 31.8 L
Plt Count 225
Sodium 137
Potassium 4.4
Chloride 104
Carbon Dioxide 25
BUN 10
Creatinine 0.8
Glucose 116 H
Calcium 9.3
Total Bilirubin 0.8
AST 27
ALT 17
Alkaline Phosphatase 84
Vital Signs:
Vital Signs
Temp Pulse Resp BP Pulse Ox
98.5 F 89 17 134/66 96
12/03/23 07:36 12/03/23 07:36 12/03/23 07:36 12/03/23 07:36 12/03/23 07:36
I&O
12/02/23 12/03/23 12/04/23
06:59 06:59 06:59
Intake Total 4080 / 4080 1380 / 1380
Balance 4080 / 4080 1380 / 1380
Review of Systems
-
History Source: Patient
All other systems: Not reviewed unless documented
Physical Exam
-
General: No Apparent Distress
HEENT: Moist Mucous Membranes
Respiratory: Clear to Auscultation (anteriroly)
GI: Soft and Nontender; Negative Nondistended (obese) or Normal Bowel Sounds (hypoactive)
Neuro: AO x 3
Data Reviewed
-
CT Scan: Image personally visualized and interpreted and Report Reviewed by me
Ultrasound: Image personally visualized and interpreted and Report Reviewed by me
Labs: Labs Reviewed by me
--- NOTE | 2023-12-03 11:56 | W.DS.TRANS ---
DC Summary - Bilingual School Psychologist
-
Discharge Instructions:
Discharge Diagnosis/Procedures Small bowel obstruction
Diet Low Residue,Low Fat,Low Cholesterol
Activity As tolerated
Instructions:
Stand-Alone Forms:
Changes to Home Medications: No
Discharge Medications:
DC Medications w/original date entered in [facility]
aspirin 81 mg tablet,delayed release 81 mg PO DAILY Blood Clot Prevention/Tx 12/12/22
insulin NPH isoph U-100 human 100 unit/mL (3 mL) subcutaneous pen 40 unit SC DAILY Diabetes 12/12/22
insulin NPH isoph U-100 human 100 unit/mL (3 mL) subcutaneous pen 65 unit SC QPM Diabetes 12/12/22
insulin regular human 100 unit/mL injection solution (Humulin R Regular U-100 Insulin) 20 unit SC AC Diabetes 12/12/22
levothyroxine 100 mcg tablet 100 mcg PO DAILY Thyroid 12/12/22
lisinopril 5 mg tablet 5 mg PO DAILY Blood Pressure 12/12/22
multivitamin 1 tab PO DAILY Supplement 12/12/22
pravastatin 40 mg tablet 40 mg PO QPM High Cholesterol 12/12/22
Home Medication Changes
na
Pending Results: No
[2023-12-03 13:36] LABS: Glucose - Point of Care 236 mg/dl (70-99)
--- NOTE | 2023-12-03 13:42 | W.PN.GS2 ---
Today's Communication / Plan
-
-- LRD
-- OOB/ambulate
-- OK for DC from surgical perspective if tolerating a diet
Assessment / Plan
-
Patient is a 62 yo F p/w SBO secondary to adhesions and anastomosis, possible component of dietary indiscretion
Clinically improved and passing flatus and BM
AFVSS
Leukocytosis present on admission now resolved
Dietary advancement, education provided
-- LRD
-- OOB/ambulate
-- OK for DC from surgical perspective if tolerating a diet
Subjective Data
-
Date of Service: December 03, 2023
No complaints. Denies nausea or vomiting. Passing flatus and stool. Feels back to baseline.
Objective Data
-
Intake and Output
12/02/23 12/03/23 12/04/23
06:59 06:59 06:59
Intake Total 4080 / 4080 1380 / 1380
Balance 4080 / 4080 1380 / 1380
Intake:
Oral fluids 480 / 480 1380 / 1380
IV fluids (Total) 3600 / 3600
Other:
Number of approximated SMALL 1
amounts of urine
Number of approximated MODERATE 2 2
amounts of urine
Number of approximated LARGE 2
amounts of urine
Vital Signs
Temp Pulse Resp BP Pulse Ox
98.5 F 89 17 134/66 96
12/03/23 07:36 12/03/23 07:36 12/03/23 07:36 12/03/23 07:36 12/03/23 07:36
Lab Results
12/03/23 07:20
12/03/23 07:20
Calcium 9.3 mg/dl (8.4-10.2) 12/03/23 07:20
Total Bilirubin 0.8 mg/dl (0.2-1.3) 12/03/23 07:20
AST 27 U/L (14-36) 12/03/23 07:20
ALT 17 U/L (0-35) 12/03/23 07:20
Alkaline Phosphatase 84 U/L (38-126) 12/03/23 07:20
Total Protein 6.0 g/dl (6.3-8.2) L 12/03/23 07:20
Albumin 3.4 g/dl (3.5-5.0) L 12/03/23 07:20
Physical Exam
-
Gen: NAD
Abd: soft. NT/ND, obese, non-peritoneal
[2023-12-03] MEDS: NOVOLOG FLEXPEN-MODERATE RESISTANCE 3 UNITS SC (13:50)
--- NOTE | 2023-12-03 14:55 | CM ---
Pt for d/c today
Met with pt
Has ride home
Declining VN
Plan - home no needs
[2023-12-03 15:42] VITALS: BP 130/58
== END 2023-12-03 15:56 | disposition home or self-care (01) | DRG 394 ==
LOC: 3 WEST ACU 07:11
PROVIDERS: Internal Medicine; Registered Nurse; ADMITTING PHYSICIAN Hospitalist; ATTENDING PHYSICIAN Internal Medicine; CONSULT PHYSICIAN Surgery; EMERGENCY PHYSICIAN Emergency Medicine; FAMILY PHYSICIAN Internal Medicine
DX: K91.89 Other postprocedural complications and disorders of digestive system (principal); K56.51 Intestinal adhesions [bands], with partial obstruction; R65.10 Systemic inflammatory response syndrome (SIRS) of non-infectious origin without acute organ dysfunction; Z68.41 Body mass index [BMI] 40.0-44.9, adult; E11.610 Type 2 diabetes mellitus with diabetic neuropathic arthropathy; E11.42 Type 2 diabetes mellitus with diabetic polyneuropathy; E03.9 Hypothyroidism, unspecified; E66.09 Other obesity due to excess calories; I10 Essential (primary) hypertension; E78.00 Pure hypercholesterolemia, unspecified; D72.829 Elevated white blood cell count, unspecified; R93.89 Abnormal findings on diagnostic imaging of other specified body structures; M54.50 Low back pain, unspecified; Z79.4 Long term (current) use of insulin; Z79.82 Long term (current) use of aspirin; Z79.890 Hormone replacement therapy; Z79.899 Other long term (current) drug therapy; Z90.49 Acquired absence of other specified parts of digestive tract; Z87.19 Personal history of other diseases of the digestive system; Z90.89 Acquired absence of other organs; Z87.891 Personal history of nicotine dependence; Z83.3 Family history of diabetes mellitus
CPT/HCPCS: 74177; 76830; 76856; 80048; 80053; 81003; 81015; 82962; 83036; 85027; 87086; 96361; 96374; 96375; 96376; 97161; 97165; 99285; Q9967